=== PATIENT | female | born 1985 | race African-American/Black ===

== ENCOUNTER 2023-08-14 08:57 | Outpatient (CLI) | payer OTHER | END 2023-08-14 08:58 | disposition home or self-care (01) | LOC: ULT 08:57 → EEVIPCON 08:57 → ULT 08:58 | PROVIDERS: ATTEND Family Medicine | DX: I10 Essential (primary) hypertension (principal); R80.9 Proteinuria, unspecified | CPT/HCPCS: 76770 ==

== ENCOUNTER 2024-07-02 08:37 | Outpatient (CLI) | payer OTHER | END 2024-07-02 08:38 | disposition home or self-care (01) | LOC: BICRAD 08:37 | PROVIDERS: ATTEND Family Medicine | DX: M54.50 Low back pain, unspecified (principal); M25.552 Pain in left hip; M46.1 Sacroiliitis, not elsewhere classified; M41.9 Scoliosis, unspecified; M25.852 Other specified joint disorders, left hip; M25.851 Other specified joint disorders, right hip; I10 Essential (primary) hypertension; E66.9 Obesity, unspecified; Z91.010 Allergy to peanuts | CPT/HCPCS: 72100; 72170 ==